=== PATIENT | male | born 1985 | race Caucasian/White ===

== ENCOUNTER 2018-02-20 16:06 | Emergency (ER) | payer MEDICAID, OTHER ==
[2018-02-20 16:26] VITALS: BP 150/91
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
== END 2018-02-20 17:16 | disposition home or self-care (01) ==
LOC: UCCORT 16:06
DX: N52.9 Male erectile dysfunction, unspecified (principal); R03.0 Elevated blood-pressure reading, without diagnosis of hypertension
CPT/HCPCS: 99211; G0463

== ENCOUNTER 2019-10-21 09:57 | Emergency (ER) | payer OTHER ==
--- OUTSIDE RECORDS SUMMARY | 2019-10-21 10:07 | XMS REPORT | Continuity of Care Document ---
:1985 External Reference #:[id number] Author Name Brittany Park NP Address [address] [place] [address] Problems Description No Information Available Social History Type Date Description Comments Sex Unknown Tobacco Use Start: Unknown Never Smoked Cigarettes Smoking Status Reviewed: 05/16/19 Never Smoked Cigarettes ETOH Use Rare Use Of Alcohol Recreational Drug Use Has Used In Past Allergies, Adverse Reactions, Alerts Description No Known Drug Allergies Medications Active Medications SIG Qnty Indications Ordering Provider Date Zaleplon 1 by mouth at 1caps Yair Warren M.D. 08/28/2019 5mg Capsules bedtime Immunizations Description No Information Available Vital Signs Date Vital Result Comment 08/27/2019 4:04pm Weight 297.00 lb Height 71 inches 5'11" BMI (Body Mass Index) 41.4 kg/m2 BP Systolic 181 mmHg BP Diastolic 108 mmHg Heart Rate 89 /min O2 % BldC Oximetry 96 % Body Temperature 97.1 F [place] Score 14 Pain Level 0 06/10/2019 4:17pm Weight 298.00 lb Height 71 inches 5'11" BMI (Body Mass Index) 41.6 kg/m2 BP Systolic 167 mmHg BP Diastolic 93 mmHg Heart Rate 86 /min O2 % BldC Oximetry 96 % Body Temperature 97.6 F Pain Level 0 Results Description No Information Available Procedures Date Code Description Status 05/24/2019 68960 Sleep Staging 4Or More Para Completed Medical Devices Description No Information Available Encounters Type Date Location Provider Dx Diagnosis Office Visit 08/27/2019 Main Office Brittany Park G47.33 Obstructive sleep 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 (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) (pediatric) Office Visit 06/10/2019 Main Office Brittany Park G47.33 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) Office Visit 05/09/2019 Main Office Nicho Recinos M.D R06.83 Snoring 2:45p G47.30 Sleep apnea, unspecified E66.9 Obesity, unspecified Assessments Date Code Description Provider 08/27/2019 G47.33 Obstructive sleep apnea (adult) Brittany Park NP (pediatric) 06/10/2019 G47.33 Obstructive sleep apnea (adult) Brittany Park NP (pediatric) 05/24/2019 G47.33 Obstructive sleep apnea (adult) Sleep Lab - Nicho Recinos MD (pediatric) 05/09/2019 R06.83 Snoring Nicho Recinos M.D 05/09/2019 G47.30 Sleep apnea, unspecified Nicho Recinos M.D 05/09/2019 E66.9 Obesity, unspecified Nicho Recinos M.D Plan of Treatment Future Appointment(s):09/06/2019 7:00 pm - Sleep Lab - Nicho Recinos MD at Sleep Lab Functional Status Description No Information Available Mental Status Description No Information Available Referrals Refer to Reason for Referral Status Appt Yair Guevara M.D. PER CARLO VIERA AUTH REQ FOR PSG CALL REF# Created [id number] [address] [place] [address] [phone]
--- OUTSIDE RECORDS SUMMARY | 2019-10-21 10:07 | XMS REPORT | Continuity of Care Document ---
:1985 External Reference #:[id number] Author Name Mara Lehman MD Address [address] [place] [address] Care Team Providers Name Role Phone HCP given Care Team Information Business Line Manager Unavailable Problems Description No Information Available Social History Type Date Description Comments Sex Unknown Tobacco Use Start: Unknown Never Smoked Cigarettes ETOH Use Occassional Alcohol rare alcohol Recreational Drug Use Marijuana occasional marijana edibles in a state where it is legal Tobacco Use Start: Unknown Patient has never smoked Smoking Status Reviewed: 09/17/19 Patient has never smoked Allergies, Adverse Reactions, Alerts Description No Known Drug Allergies Medications Active Medications SIG Qnty Indications Ordering Provider Date Ibuprofen 200 4 tabs as needed Unknown 09/16/2019 200mg for pain Tablets Tylenol 500MG 2 tabs as needed Unknown 09/16/2019 for pain Immunizations Description No Information Available Vital Signs Date Vital Result Comment 09/17/2019 3:13pm BP Systolic 144 mmHg BP Diastolic 80 mmHg Height 70.5 inches 5'10.50" Weight 311.31 lb BMI (Body Mass Index) 44.0 kg/m2 Results Description No Information Available Procedures Description No Information Available Medical Devices Description No Information Available Encounters Type Date Location Provider Dx Diagnosis Office Visit 09/17/2019 Main Office Mara Lehman MD R03.0 Elevated 2:45p blood-pressure reading, w/o diagnosis of htn N20.0 Calculus of kidney Z68.41 Body mass index (BMI) 40.0-44.9, adult Assessments Date Code Description Provider 09/17/2019 R03.0 Elevated blood-pressure reading, without Mara Lehman MD diagnosis of hypertension 09/17/2019 N20.0 Calculus of kidney Mara Lehman MD 09/17/2019 Z68.41 Body mass index (BMI) 40.0-44.9, adult Mara Lehman MD Plan of Treatment Future Appointment(s):10/01/2019 4:30 pm - Mara Lehman MD at [id number] - Mara Lehman, MDR03.0 Elevated blood-pressure reading, without diagnosis of hypertensionFollow up:f/u one to two weeks to check blood pressure and review blood workN20.0 Calculus of kidneyReferral:Tani Juarez MD, CttvyhlB45.41 Body mass index (BMI) 40.0-44.9, adult Functional Status Description No Information Available Mental Status Description No Information Available Referrals Refer to Dr Reason for Referral Status Appt Date aTni Juarez MD h/o kidney stones in the past most recently Created last week, and lithotripsy, four or five years ago. [address] [place] [address] [place] [address] [phone]
--- OUTSIDE RECORDS SUMMARY | 2019-10-21 10:07 | XMS REPORT | Continuity of Care Document ---
:1985 External Reference #:[id number] Author Name Brittany Park NP (transmitted by agent of provider Latanya Villa) Address [address] [place] [address] Problems Description No Information Available Social History Type Date Description Comments Sex Unknown Tobacco Use Start: Unknown Never Smoked Cigarettes Smoking Status Reviewed: 05/16/19 Never Smoked Cigarettes ETOH Use Rare Use Of Alcohol Recreational Drug Use Has Used In Past Allergies, Adverse Reactions, Alerts Description No Known Drug Allergies Medications Description No Active Medications Immunizations Description No Information Available Vital Signs Date Vital Result Comment 08/27/2019 4:04pm Weight 297.00 lb Height 71 inches 5'11" BMI (Body Mass Index) 41.4 kg/m2 BP Systolic 181 mmHg BP Diastolic 108 mmHg Heart Rate 89 /min O2 % BldC Oximetry 96 % Body Temperature 97.1 F Pain Level 0 06/10/2019 4:17pm Weight 298.00 lb Height 71 inches 5'11" BMI (Body Mass Index) 41.6 kg/m2 BP Systolic 167 mmHg BP Diastolic 93 mmHg Heart Rate 86 /min O2 % BldC Oximetry 96 % Body Temperature 97.6 F Pain Level 0 Results Description No Information Available Procedures Date Code Description Status 05/24/2019 38525 Sleep Staging 4Or More Para Completed Medical Devices Description No Information Available Encounters Type Date Location Provider Dx Diagnosis Office Visit 06/10/2019 Main Office Brittany Park G47.33 Obstructive sleep 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) Office Visit 05/09/2019 Main Office Nicho Recinos M.D R06.83 Snoring 2:45p G47.30 Sleep apnea, unspecified E66.9 Obesity, unspecified Assessments Date Code Description Provider 06/10/2019 G47.33 Obstructive sleep apnea (adult) Brittany Park NP (pediatric) 05/24/2019 G47.33 Obstructive sleep apnea (adult) Sleep Lab - Nicho Recinos MD (pediatric) 05/09/2019 R06.83 Snoring Nicho Recinos M.D 05/09/2019 G47.30 Sleep apnea, unspecified Nicho Recinos M.D 05/09/2019 E66.9 Obesity, unspecified Nicho Recinos M.D Plan of Treatment No Information Available Functional Status Description No Information Available Mental Status Description No Information Available Referrals Refer to Reason for Referral Status Appt Date Yair Warren M.D. PER CARLO VIERA AUTH REQ FOR PSG CALL REF# Created / 0000 [id number] [address] [place] [address] [phone]
--- NOTE | 2019-10-21 11:18 | UC ---
Respiratory Complaint HPI - HPI Summary HPI Summary: Pt presents with c/o cough, chest tightness, fever, ST, and SOB, and "runny nose" X 3 days. - History of Current Complaint Chief Complaint: UCGeneralIllness Stated Complaint: COUGH,SOB,FEVER Time Seen by Provider: 10/21/19 10:03 Hx Obtained From: Patient Hx From Patient Unobtainable Due To: Dementia Onset/Duration: Lasting Days, Still Present Timing: Constant Severity Initially: Mild Severity Currently: Mild Pain Intensity: 0 Pain Scale Used: 0-10 Numeric Character: Cough: Productive Aggravating Factors: Allergens, Other - PND Associated Signs And Symptoms: Positive: URI, Nasal Congestion - Risk Factors Pulmonary Embolism Risk Factors: Negative Cardiac Risk Factors: Negative Pseudomonas Risk Factors: Negative Tuberculosis Risk Factors: Negative - Allergies/Home Medications Allergies/Adverse Reactions: Allergies Allergy/AdvReac Type Severity Reaction Status Date / Time No Known Allergies Allergy Verified 10/21/19 10:11 Home Medications: Home Medications predniSONE 10 mg TAB [Deltasone 10 MG TAB*] 30 mg PO DAILY #12 tab 10/21/19 [Rx] PMH/Surg Hx/FS Hx/Imm Hx Previously Healthy: Yes - Surgical History Surgical History: Yes Surgery Procedure, Year, and Place: LASER LITHOTRIPSY. STENT PLACED - Family History Known Family History: Positive: Cardiac Disease - Social History Occupation: Employed Full-time Lives: With Family Alcohol Use: Rare Substance Use Type: None Smoking Status (MU): Never Smoked Tobacco Have You Smoked in the Last Year: No - Immunization History Vaccination Up to Date: Yes Review of Systems All Other Systems Reviewed And Are Negative: Yes Constitutional: Positive: Fever - subjective, Chills, Fatigue Skin: Positive: Negative Eyes: Positive: Negative ENT: Positive: Sore Throat, Sinus Congestion Respiratory: Positive: Cough Cardiovascular: Positive: Negative Gastrointestinal: Positive: Negative Genitourinary: Positive: Negative Motor: Positive: Negative Neurovascular: Positive: Negative Musculoskeletal: Positive: Negative Neurological/Mental Status: Positive: Negative Psychological: Positive: Negative Is Patient Immunocompromised?: No Physical Exam Triage Information Reviewed: Yes Appearance: Well-Appearing Vital Signs Reviewed: Yes Eye Exam: Normal ENT: Positive: Nasal congestion Dental Exam: Normal Neck exam: Normal Respiratory Exam: Normal Respiratory: Positive: Normal breath sounds, No respiratory distress Cardiovascular Exam: Normal Musculoskeletal Exam: Normal Neurological Exam: Normal Psychological Exam: Normal Skin Exam: Normal Respiratory Course/Dx - Differential Dx/Diagnosis Differential Diagnosis/HQI/PQRI: Bronchitis, Influenza Provider Diagnosis: Viral syndrome Discharge ED - Sign-Out/Discharge Documenting (check all that apply): Patient Departure All imaging exams completed and their final reports reviewed: No Studies - Discharge Plan Condition: Stable Disposition: HOME Prescriptions: predniSONE 10 mg TAB [Deltasone 10 MG TAB*] 30 mg PO DAILY #12 tab Patient Education Materials: Acute Cough (ED) Forms: COVID-19 Tested & Isolation Referrals: Dia Redmond PA [Primary Care Provider] - If Needed - Billing Disposition and Condition Condition: STABLE Disposition: Home
--- NOTE | 2019-10-24 07:55 | UC ---
- Progress Note Progress Note: Your coronavirus test was negative You no longer need to self quarantine REcommend continue to self distance If you are still having symptoms or feeling worse, recommend follow up with your PCP or return to urgent care Course/Dx - Diagnoses Provider Diagnoses: Viral syndrome Discharge ED - Sign-Out/Discharge Documenting (check all that apply): Post-Discharge Follow Up All imaging exams completed and their final reports reviewed: No Studies - Discharge Plan Condition: Stable Disposition: HOME Prescriptions: predniSONE 10 mg TAB [Deltasone 10 MG TAB*] 30 mg PO DAILY #12 tab Patient Education Materials: Acute Cough (ED) Referrals: Dia Redmond PA [Primary Care Provider] - If Needed - Billing Disposition and Condition Condition: STABLE Disposition: Home
== END 2019-10-21 11:17 | disposition home or self-care (01) ==
LOC: UCCORT 09:57
DX: B34.9 Viral infection, unspecified (principal); R07.89 Other chest pain; R06.02 Shortness of breath; Z20.828 Contact with and (suspected) exposure to other viral communicable diseases
CPT/HCPCS: 99212; G0463; U0002